=== PATIENT | male | born 1945 | race Caucasian/White ===

== ENCOUNTER 2016-11-03 17:13 | Inpatient (IN) | payer OTHER ==
[~2016-11-03 17:13] MED LIST: MEPERIDINE 25 MG/ML SYR ONE; NA BICARBONATE 50 MEQ/50 ML VIAL ONE
[2016-11-03] MEDS ORDERED: NS 1,000 ML BAG *FOR SEPSIS ORDER SET ONLY IV ONE (17:29)
--- NOTE | 2016-11-03 17:34 | EDPHY ---
HPI/HX/ROS/PE/MDM Narrative: CHIEF COMPLAINT: Rigors following thoracentesis HPI: The patient is a 71 y/o male arriving with his from the Ultrasound Department following a thoracentesis by Dr. Gonzalez complaining of severe rigors. He was admitted 2 months ago for chest pain and viral syndrome. Over the last week he's had increasing shortness of breath and fever. A chest x-ray showed increasing plural effusion, so he was scheduled for a thoracentesis today. Dr. Gonzalez extracted 2L of fluid from the right side and patient almost immediately developed rigors. They administered Demerol while in ultrasound then transferred him to the ED. The patient reports his shortness of breath has improved since the procedure and he denies pain. REVIEW OF SYSTEMS: Aside from elements discussed in the HPI, a comprehensive 10-point review of systems was reviewed and is negative. PMH: GERD Prior medical records reviewed including admission 09/02/16 for chest pain and URI. SOCIAL HISTORY: , at bedside Senior Tax Accountant: Dr. Jah Beth PHYSICAL EXAM: General:Patient is alert, strong rigors, appears uncomfortable. ENT:Eyes are normal to inspection. ENT inspection normal. Neck: Normal inspection. Full range of motion. Respiratory:No respiratory distress. Breath sounds present bilaterally. Cardiovascular: Tachycardic regular rate and rhythm. Strong peripheral pulses. Normal cap refill. Abdomen:The abdomen is nontender to palpation. There are no peritoneal signs. There are normal bowel sounds. Back: Normal to inspection. No tenderness to palpation. Skin: Normal color. No rash. Warm and dry. Extremities: Normal appearance. Full range of motion. Neuro: Oriented x3. Normal motor function. Normal sensory function. ED Course: IV established. Labs drawn including CBC, CHEM, cultures, lactic acid, and PTPTT. EKG ordered. 2500mL IV NS administered for sepsis. 750mg IV Levofloxacin administered. The 12 lead EKG was interpreted by myself. See hard copy and/or "tracemaster" electronic copy for interpretation. 174: Reevaluated patient. His HR has come down from 149 to 115. He no longer has rigors and feels improved. Lactic acid 4.4. 175: Spoke with Dr. Caro, hospitalist. He accepts admission. MDM: This patient presents with tachycardia and rigors following therapeutic and diagnostic thoracentesis as an outpatient. The patient was treated with IV fluids and his symptoms gradually resolved. Initial lab results do not reveal acute abnormality. Given his unusual pneumonia and this episode, he requires admission the hospital for further workup. His initial lactate was Greater than 4 which does qualify him as septic shock per core measure, however he was not hypotensive at any point and I do not think this truly represents a clinical diagnosis of septic shock. - Data Points Laboratory Results: 11/03/16 11/03/16 11/03/16 17:16 17:12 16:36 POC Hgb 16.3 gm/dL gm/dL (14.5-17.3) POC Hct 48 % % (42.8-50.6) VBG Lactic Acid 4.4 mmol/L H mmol/L (0.7-2.1) POC Sodium 144 mEq/L mEq/L (134-144) POC Potassium 4.2 mEq/L mEq/L (3.3-5.0) POC Chloride 103 mEq/L mEq/L (96-108) POC BUN 22 mg/dL mg/dL (7-23) POC Creatinine 1.0 mg/dL mg/dL (0.8-1.5) POC Glucose 134 mg/dL H mg/dL (70-100) Fluid Meso/Macro/Nelson % Fl Pathologist Review Pleural Fluid Source Pleural Color Pleural Appearance Pleural pH Pleural WBC Pleural RBC Pleural Neutrophils Pleural Lymphocytes % Cytology Pending 11/03/16 02 16:36 16:36 POC Hgb POC Hct VBG Lactic Acid POC Sodium POC Potassium POC Chloride POC BUN POC Creatinine POC Glucose Fluid Meso/Macro/Nelson % 15 % % Fl Pathologist Review Pending Pleural Fluid Source PLEURAL Pleural Color YELLOW (STRAW/YELL) Pleural Appearance SL. HAZY H (CLEAR) Pleural pH 7.0 Cancelled (6.8-7.6) Pleural WBC 1327 /mm3 /mm3 Pleural RBC 2400 /MM3 /MM3 Pleural Neutrophils 53 % % Pleural Lymphocytes % 32 % % Cytology Medications Given: Discontinued Medications Sodium Chloride (Ns *For Sepsis Order Set Only*) 2,585 ml 30 ml/kg (2585 ml) IV EDNOW ONE Stop: 11/03/16 17:30 Last Admin: 11/03/16 17:43 Dose: 2,585 ml Point of Care Test Results: 11/03/16 17:12 POC Sodium 144 POC Potassium 4.2 POC Chloride 103 POC BUN 22 POC Creatinine 1.0 POC Glucose 134 H General Initial Vital Signs: Initial Vital Signs Temperature (C) 37.7 C 11/03/16 17:20 Heart Rate 142 H 11/03/16 17:20 Respiratory Rate 24 H 11/03/16 17:20 Blood Pressure 127/87 H 11/03/16 17:20 O2 Sat (%) 97 11/03/16 17:20 O2 Delivery Mode Room Air Allergies/Adverse Reactions: No Known Allergies Allergy (Unverified 09/02/16 09:08) Home Medications: Medication Instructions Recorded Cholecalciferol Vit D3 [Vitamin D3 2,000 units PO DAILY 09/02/16 (*)] Herbals/Supplements -Info Only 1 ea PO DAILY 09/02/16 Omeprazole [Prilosec 20 mg] 20 mg PO DAILY 09/02/16 Vitamin B Complex [B Complex] 1 each PO DAILY 09/02/16 Acetaminophen [Tylenol 325mg (*)] 325 mg PO BID PRN 11/03/16 Tamsulosin HCl [Flomax 0.4 MG (*)] 0.4 mg PO DAILY 11/03/16 Naproxen Sodium [Aleve 220 MG (*)] 440 mg PO BID #28 tab 11/05/16 Sennosides/Docusate Sodium 1 - 2 tab PO BID tab 11/05/16 [Senokot-S] levOFLOXACIN [Levofloxacin] 750 mg PO DAILY #5 tablet 11/05/16 oxyCODONE/APAP 5/325 [Percocet 1 - 2 tab PO Q4HRS PRN #30 tab 11/05/16 5/325 (*)] Departure - Departure Disposition: [facility] Inpatient Acute Clinical Impression: Rigors Condition: Good Report Scribed for: Patrick Galan Report Scribed by: Sandra Vasquez Date of Report: 11/03/16 Time of Report: 17:16 Physician Review and Approval Statement: Portions of this note were transcribed by an ED scribe. I personally performed the history, physical exam, and medical decision making; and confirm the accuracy of the information in the transcribed note.
[2016-11-03 18:22] LABS: LACGHOST ORDER
[2016-11-03 18:36] LABS: % IMMATURE GRANULYOCYTES 0.8 % (0.0-1.1); ABSOLUTE IMMATURE GRANULOCYTES 0.12 10^3/uL (0.00-0.10); ADD DIFF? NO; ADD MORPH? NO; ADD SCAN? NO; ATYPICAL LYMPHOCYTE FLAG 10 (0-99); FRAGMENT RBC FLAG 0 (0-99); HEMOGLOBIN 11.9 g/dL (13.7-17.5); LEFT SHIFT FLG 20 (0-99); LIPEMIA HEMOLYSIS FLAG 80 (0-99); MEAN CELL HEMOGLOBIN CONCENTR. 33.1 g/dL (32.4-36.7); MEAN CELL VOLUME 87.8 fL (81.5-99.8); MEAN PLATELET VOLUME 8.5 fL (8.7-11.7); PLATELET CLUMPS FLAG 20 (0-99); PLATELET COUNT 421 10^3/uL (150-400); RED CELL DISTRIBUTION WIDTH 12.4 % (11.5-15.2)
[2016-11-03 18:54] LABS: INR 1.23 (0.83-1.16); PROTIME(PATIENT) 15.5 SEC (12.0-15.0)
[2016-11-03 18:55] LABS: APTT 29.8 SEC (23.0-38.0)
[2016-11-03 18:57] LABS: ANION GAP 9 mEq/L (8-16); CALCIUM 7.5 mg/dL (8.5-10.4); CARBON DIOXIDE 23 mEq/l (22-31); CHLORIDE 108 mEq/L (97-110); CREATININE 0.8 mg/dL (0.7-1.3); GLOMERULAR FILTRATION RATE > 60; GLUCOSE 151 mg/dL (70-100); POTASSIUM 4.3 mEq/L (3.5-5.2); SODIUM 140 mEq/L (134-144)
[2016-11-03] MEDS ORDERED: ACETAMINOPHEN 325 MG TAB PO PRN (19:22)
[2016-11-03] MEDS ORDERED: OXYCODONE/APAP 5/325 TAB PO PRN (19:22)
[2016-11-03] MEDS ORDERED: ONDANSETRON DISINTEGRATING 4 MG TAB PO PRN (19:22)
[2016-11-03] MEDS ORDERED: ONDANSETRON 4 MG/2 ML VIAL IVP PRN (19:22)
--- NOTE | 2016-11-03 20:17 | GHP ---
[f rep st] HISTORY AND PHYSICAL DATE OF ADMISSION: 11/03/2016 CHIEF COMPLAINT: Status post thoracentesis with rigors. HISTORY OF PRESENT ILLNESS: This is a 71-year-old male who was actually admitted to the hospital in August for pleuritic chest pain. He was discharged on NSAIDs and said his chest pain improved. He then developed, though, some lower back pain on the right. It was thought this may be a kidney s tone sludge. He was taken off his NSAIDs and placed on Tylenol. However, the last couple of weeks he has been having fevers and chills on a daily basis. He had a chest x-ray done , which showed no pleural effusion. He then saw the primary care doctor who then referred him to Pulmonolog y. He had a scheduled thoracentesis done today and immediately afterwards developed rigors. He was given Demerol and he is now feeling better. He states that his lower right-sided back pain is some what better, is only having some pleuritic type sharp pain currently. He has had a significant amou nt of coughing but not a lot of sputum. He has been sleeping a great deal and has had significant f atigue. REVIEW OF SYSTEMS: A 10-point review of systems was obtained and was negative. PAST MEDICAL HISTORY: GERD. MEDICATIONS: Reviewed. SOCIAL HISTORY: No smoking or alcohol. FAMILY HISTORY: Reviewed, not contributory. PHYSICAL EXAM: VITAL SIGNS: Afebrile. Blood pressure is 131/65, heart rate is 118, oxygen saturat ion 94% on room air. GENERAL: The patient is well developed, in no apparent distress. HEENT: Non icteric sclerae. Extraocular movements intact. Moist mucous membranes. NECK: Supple. No thyrome beni. LUNGS: Good effort. Decreased breath sounds in the right base with some slight rhonchi. CA RDIOVASCULAR: Tachycardic but regular. No murmurs, rubs, or gallops. ABDOMEN: Positive bowel ana nds, soft, nontender, nondistended. No hepatosplenomegaly. EXTREMITIES: No clubbing, cyanosis, or edema. SKIN: Without rash. Warm, dry, intact. NEUROLOGIC: Alert and oriented x3. Moving all 4 extremities equally. PSYCH: Normal mood and affect. LABORATORY DATA: White blood cell count 15, hemoglobin 11, platelets are 421. Chemistries normal. Lactate was elevated at 4 but fluid it has come down to 1.1. ASSESSMENT: This is a 71-year-old male presenting with rigors after thoracentesis. PLAN: 1. Large right-sided pleural effusion. About 2 L of fluid were taken out. I suspect this is going to be exudative in nature. I suspect he might have had pneumonia for some time with a result in ef fusion. We will treat as a community-acquired pneumonia with ceftriaxone and azithromycin. In the morning we will get a CT scan of his chest to further elucidate or to further evaluate. 2. Sepsis. The patient's lactate is improved. We will continue the IV fluids overnight. /[id number]/MODL
[2016-11-03] MEDS: NS 1,000 ML IV SCH (21:23)
[2016-11-04] MEDS: NS 1,000 ML IV SCH (03:14)
[2016-11-04 06:01] LABS: % IMMATURE GRANULYOCYTES 0.6 % (0.0-1.1); ABSOLUTE IMMATURE GRANULOCYTES 0.07 10^3/uL (0.00-0.10); ADD DIFF? NO; ADD MORPH? NO; ADD SCAN? NO; ATYPICAL LYMPHOCYTE FLAG 0 (0-99); FRAGMENT RBC FLAG 0 (0-99); HEMATOCRIT 39.2 % (40.0-51.0); LEFT SHIFT FLG 0 (0-99); LIPEMIA HEMOLYSIS FLAG 80 (0-99); MEAN CELL HEMOGLOBIN 29.4 pg (27.9-34.1); MEAN CELL HEMOGLOBIN CONCENTR. 33.2 g/dL (32.4-36.7); MEAN CELL VOLUME 88.7 fL (81.5-99.8); MEAN PLATELET VOLUME 8.7 fL (8.7-11.7); PLATELET CLUMPS FLAG 0 (0-99); PLATELET COUNT 394 10^3/uL (150-400); RED BLOOD CELL COUNT 4.42 10^6/uL (4.40-6.38); RED CELL DISTRIBUTION WIDTH 12.4 % (11.5-15.2)
[2016-11-04 06:10] LABS: ALANINE AMINOTRANSFERASE 49 IU/L (21-72); ALBUMIN 2.3 g/dL (3.5-5.0); ALKALINE PHOSPHATASE 42 IU/L (38-126); ANION GAP 8 mEq/L (8-16); ASPARTATE AMINOTRANSFERASE 26 IU/L (17-59); BILIRUBIN,TOTAL 0.7 mg/dL (0.1-1.4); CALCIUM 8.1 mg/dL (8.5-10.4); CARBON DIOXIDE 23 mEq/l (22-31); CHLORIDE 109 mEq/L (97-110); CREATININE 0.7 mg/dL (0.7-1.3); GLOMERULAR FILTRATION RATE > 60; GLUCOSE 89 mg/dL (70-100); POTASSIUM 4.1 mEq/L (3.5-5.2); SODIUM 140 mEq/L (134-144); TOTAL PROTEIN 4.7 g/dL (6.3-8.2)
--- NOTE | 2016-11-04 09:24 | CPEKG ---
Heart Rate: 132 RR Interval: 455 P-R Interval: 136 QRSD Interval: 72 QT Interval: 268 QTC Interval: 397 P Eagle: 56 QRS Eagle: 99 T Wave Eagle: 71 EKG Severity - OTHERWISE NORMAL ECG - EKG Impression: SINUS TACHYCARDIA EKG Impression: RIGHT AXIS DEVIATION Electronically Signed By: Marcial Rudd 06-Nov-2016 09:43:06
[2016-11-04] MEDS: TAMSULOSIN HCL 0.4 MG CAP PO SCH (10:08)
[2016-11-04] MEDS: AZITHROMYCIN 250 MG TAB PO SCH (10:08)
[2016-11-04] MEDS: PANTOPRAZOLE SODIUM 40 MG TAB PO SCH (10:08)
[2016-11-04] MEDS ORDERED: LACTULOSE 20 GM/30 ML UDCUP PO PRN (10:44)
[2016-11-04] MEDS ORDERED: BISACODYL 10 MG SUPP PR PRN (10:44)
[2016-11-04] MEDS ORDERED: MAGNESIUM HYDROXIDE 30 ML UDCUP PO PRN (10:44)
[2016-11-04] MEDS ORDERED: POLYETHYLENE GLYCOL 3350 17 GM PKT PO PRN (10:44)
[2016-11-04] MEDS: NAPROXEN SODIUM 220 MG TAB PO SCH ×2 (11:11→20:15)
[2016-11-04] MEDS: SENNOSIDES/DOCUSATE SODIUM TAB PO SCH ×2 (11:13→20:14)
--- NOTE | 2016-11-04 14:13 | HOSPPROG ---
Hospitalist Progress Note Assessment/Plan: Assessment: 71-year-old male presents with severe sepsis secondary to community -acquired pneumonia complicated by parapneumonic effusion Plan: 1. Severe sepsis. Evidenced by sepsis-2 criteria consisting of tachycardia ( heart rate of 142) plus tachypnea (respiratory rate of 24) plus leukocytosis ( white blood cell count 15,100), clear source of infection notably pneumonia, evidence of end-organ failure notably lactic acidosis, resulting in autonomic dysregulation in the setting of infection -required empiric antibiotics and IV fluid boluses -continue to monitor CBC -continues to have tachycardia and leukocytosis, clinically on resolved 2. Metabolic acidosis. Acute, secondary to lactic acid, peak level 4.4, secondary to combination of hypovolemia and severe sepsis 3. Community-acquired pneumonia. Evidenced by right-sided consolidation on chest CT plus pulmonary symptoms including chest pain and pleuritic discomfort -day 2 ceftriaxone/azithromycin, will complete 7 day course given his significant effusion -initiate naproxen scheduled for chest discomfort, oxycodone immediate release p.r.n. 4. Parapneumonic effusion. Exudative on pleural fluid study, 2 L removed, g stain demonstrates white blood cells but currently no growth to date -given patient's risk of recurrent effusion and worsening pulmonary symptoms, will monitor as an inpatient and repeat two view chest x-ray in a.m. to ensure rapid recurrence has not occurred -nonsteroidal anti-inflammatory medications Diet. Regular Prophylaxis. High risk patient, Lovenox 40 Code. Full Disposition. Anticipated discharge is 11/05/2016, pending clinical resolution of conditions outlined above. Subjective: Counseled patient and family regarding the clinical diagnosis, treatment course, daily plan Objective: Vital Signs Temp Pulse Resp BP Pulse Ox 36.7 C 90 14 140/67 H 94 11/04/16 12:00 11/04/16 12:00 11/04/16 12:00 11/04/16 12:00 11/04/16 12:00 Laboratory Results 11/04/16 04:34 11/04/16 04:34 11/03/16 11/04/16 11/05/16 05:59 05:59 05:59 Intake Total 3500 Balance 3500 PT 15.5 SEC (12.0-15.0) H 11/03/16 18:22 INR 1.23 (0.83-1.16) H 11/03/16 18:22 - Time Spent With Patient Time Spent with Patient: greater than 35 minutes Time Spent with Patient: Greater than 35 minutes spent on this patients care, greater than 50% of time spent counseling, educating, and coordinating care regarding the above mentioned plan. - Physical Exam Constitutional: no apparent distress, uncomfortable Cardiovascular: regular rate and rhythym, no murmur, rub, or gallop Respiratory: reduced air movement (Right base and right mid posterior segment), No expiratory wheeze, No inspiratory crackles, No bronchial breath sounds, No respiratory distress Gastrointestinal: normoactive bowel sounds, soft, non-tender abdomen, no palpable masses Neurologic: AAOx3, sensation intact bilaterally, No weakness Psychiatric: interacting appropriately, not anxious, not encephalopathic, thought process linear ICD10 Worksheet Patient Problems: Problems Problem Status Onset Pericarditis Acute Chest pain Acute Rigors Acute
[2016-11-04] MEDS: ENOXAPARIN 40 MG/0.4 ML SYR SC SCH (15:56)
[2016-11-04 16:28] VITALS: TEMP 98.1
[2016-11-04] MEDS ORDERED: NS 1,000 ML IV ONE (16:34)
[2016-11-04 18:54] VITALS: RESP 16
[2016-11-05 05:24] LABS: % IMMATURE GRANULYOCYTES 0.5 % (0.0-1.1); ABSOLUTE IMMATURE GRANULOCYTES 0.04 10^3/uL (0.00-0.10); ADD DIFF? NO; ADD MORPH? NO; ADD SCAN? NO; ATYPICAL LYMPHOCYTE FLAG 10 (0-99); FRAGMENT RBC FLAG 0 (0-99); HEMATOCRIT 38.1 % (40.0-51.0); HEMOGLOBIN 12.6 g/dL (13.7-17.5); LEFT SHIFT FLG 0 (0-99); LIPEMIA HEMOLYSIS FLAG 80 (0-99); MEAN CELL HEMOGLOBIN 29.2 pg (27.9-34.1); MEAN CELL HEMOGLOBIN CONCENTR. 33.1 g/dL (32.4-36.7); MEAN CELL VOLUME 88.2 fL (81.5-99.8); MEAN PLATELET VOLUME 8.5 fL (8.7-11.7); PLATELET CLUMPS FLAG 10 (0-99); PLATELET COUNT 348 10^3/uL (150-400); RED BLOOD CELL COUNT 4.32 10^6/uL (4.40-6.38); RED CELL DISTRIBUTION WIDTH 12.4 % (11.5-15.2)
[2016-11-05 05:36] LABS: ALANINE AMINOTRANSFERASE 41 IU/L (21-72); ALBUMIN 2.2 g/dL (3.5-5.0); ALKALINE PHOSPHATASE 39 IU/L (38-126); ANION GAP 9 mEq/L (8-16); ASPARTATE AMINOTRANSFERASE 21 IU/L (17-59); BILIRUBIN,TOTAL 0.7 mg/dL (0.1-1.4); CALCIUM 8.3 mg/dL (8.5-10.4); CARBON DIOXIDE 21 mEq/l (22-31); CHLORIDE 110 mEq/L (97-110); CREATININE 0.7 mg/dL (0.7-1.3); GLOMERULAR FILTRATION RATE > 60; GLUCOSE 96 mg/dL (70-100); SODIUM 140 mEq/L (134-144); TOTAL PROTEIN 4.7 g/dL (6.3-8.2)
[2016-11-05 08:16] VITALS: BP 117/65; PULSE 91; O2SAT 92
[2016-11-05] MEDS: AZITHROMYCIN 250 MG TAB PO SCH (08:55)
[2016-11-05] MEDS: PANTOPRAZOLE SODIUM 40 MG TAB PO SCH (08:55)
[2016-11-05] MEDS: SENNOSIDES/DOCUSATE SODIUM TAB PO SCH (08:55)
[2016-11-05] MEDS: NAPROXEN SODIUM 220 MG TAB PO SCH (08:55)
[2016-11-05] MEDS: ENOXAPARIN 40 MG/0.4 ML SYR SC SCH (08:56)
[2016-11-05] MEDS: TAMSULOSIN HCL 0.4 MG CAP PO SCH (08:56)
--- NOTE | 2016-11-05 11:37 | PDDCSUM ---
Discharge Summary Discharge Summary: DISCHARGE SUMMARY FOLLOW-UP ITEMS: 1. Repeat chest x-ray in 4-6 weeks or sooner if symptoms warrant 2. Cytology and Gram stain pending at time of discharge DATE OF ADMISSION: 11/03/2016 DATE OF DISCHARGE: 11/05/2016 DISCHARGE DIAGNOSES: 1. Severe sepsis 2. Metabolic acidosis 3. Community-acquired pneumonia 4. Parapneumonic effusion CONSULTATIONS: None PROCEDURES / IMAGING: Right-sided thoracentesis, diagnostic and therapeutic, 2 L of fluid removed CHIEF COMPLAINT: Acute shortness of breath and rigors SUBJECTIVE: Patient is feeling well at time of discharge, he is ambulating safely on room air PHYSICAL EXAM ON DISCHARGE: Satting well on room air, systolic blood pressure is 110, heart rate 90, afebrile overnight, reduced air movement in the right posterior mid and lower segment with good air movement superior to that on the right, good air movement on the left LABS ON DISCHARGE: White blood cell count 7800, hemoglobin 12.6, platelets 129812, creatinine 0.7, potassium 4, liver panel unremarkable, g stain no organisms HOSPITAL COURSE BY PROBLEM: 1. Severe sepsis evidenced by sepsis-2 criteria consisting of tachycardia ( heart rate of 142) plus tachypnea (respiratory rate of 24) plus leukocytosis ( white blood cell count 15,100) plus clear source of infection notably pneumonia , with evidence of end-organ failure notably lactic acidosis, resulting in autonomic dysregulation in the setting of infection. The patient received empiric IV fluids and empiric IV antibiotics. His leukocytosis had resolved at time of discharge. Was intermittently tachycardic in the setting of exertion, but his resting heart rate was less than 100 at time of discharge. 2. Metabolic acidosis. Acute, secondary to lactic acid, peak level 4.4, secondary to a combination of hypovolemia and severe sepsis. 3. Community-acquired pneumonia. Evidenced by right-sided consolidation on chest CT plus pulmonary symptoms including chest pain and pleuritic discomfort. Patient received 3 days of IV antibiotic therapy any will complete total of at least 7 days of antibiotics with oral levofloxacin. He was also initiated on scheduled naproxen to alleviate his chest discomfort and inflammation. He required as needed Percocet for breakthrough pain control. 4. Parapneumonic effusion. Exudate of on pleural fluid study with 2 L of fluid removed and no organisms on Gram stain. The patient had a chest x-ray in August of 2016 which demonstrated no evidence of masses or malignancy and no evidence of chronic effusion. He had follow-up chest x-ray on 11/05 which demonstrated no reaccumulation of fluid and stable right basilar effusion. The patient may reabsorbed this fluid and may not require further thoracentesis but he should be evaluated closely in the outpatient setting by Dr. Beth or his primary care provider. I have advised the patient's family that if he is experiencing worsening of his symptoms, he should be evaluated and consideration for repeat thoracentesis may be necessary therapeutically. DISCHARGE MEDICATIONS: Please see official discharge medication reconciliation sheet in chart , levofloxacin 750 mg daily, Percocet as needed, naproxen scheduled twice daily. DISCHARGE INSTRUCTIONS: The patient should follow up with either Dr. Beth or Dr. Messer this week for reassessment of his pulmonary symptoms. TIME SPENT: Greater than 30 minutes were spent on direct patient care, as well as discharge planning and preparation.
== END 2016-11-05 12:23 | disposition home or self-care (01) | DRG 871 ==
LOC: EDSTATUS 17:13 → OBSVTOIN 19:22 → F3E 20:55
PROVIDERS: ADMIT Internal Medicine; ATTEND Internal Medicine
PROC: 0W993ZX Drainage of Right Pleural Cavity, Percutaneous Approach, Diagnostic (ICD-10-PCS; principal; 2016-11-03)
DX: A41.9 Sepsis, unspecified organism (principal); R65.20 Severe sepsis without septic shock; J18.9 Pneumonia, unspecified organism; J90 Pleural effusion, not elsewhere classified; E87.2 Acidosis
CPT/HCPCS: 82947-QW; 96365; J0696; J1650; J1956

== ENCOUNTER → 2016-11-13 | Outpatient (CLI) | payer OTHER ==
[~2016-11-13] MED LIST changes: +LIDOCAINE 1% 30 ML SDV ONE; -MEPERIDINE 25 MG/ML SYR ONE
== END ==
LOC: FIMAGING 13:01
PROVIDERS: ATTEND Internal Medicine Pulmonary Disease
PROC: 0W993ZZ Drainage of Right Pleural Cavity, Percutaneous Approach (ICD-10-PCS; principal; 2016-11-13)
DX: J90 Pleural effusion, not elsewhere classified (principal); J81.0 Acute pulmonary edema

== ENCOUNTER → 2016-11-30 | Outpatient (CLI) | payer OTHER | LOC: FIMAGING 09:38 → EDSTATUS 09:39 | PROVIDERS: ATTEND Internal Medicine Pulmonary Disease | DX: J90 Pleural effusion, not elsewhere classified (principal) ==

== ENCOUNTER → 2017-01-10 | Outpatient (CLI) | payer OTHER | LOC: FIMAGING 08:49 | PROVIDERS: ATTEND Internal Medicine Pulmonary Disease | DX: J90 Pleural effusion, not elsewhere classified (principal) ==

== ENCOUNTER → 2017-03-06 | Outpatient (CLI) | payer OTHER | LOC: FIMAGING 10:57 → EDSTATUS 11:27 | PROVIDERS: ATTEND Internal Medicine Pulmonary Disease | DX: J90 Pleural effusion, not elsewhere classified (principal) ==

== ENCOUNTER → 2017-06-12 | Outpatient (CLI) | payer OTHER | LOC: FLAB 08:54 | PROVIDERS: ATTEND Internal Medicine Pulmonary Disease | DX: J90 Pleural effusion, not elsewhere classified (principal) ==

== ENCOUNTER → 2019-01-23 | Outpatient (CLI) | payer OTHER | LOC: FIMAGING 14:22 | PROVIDERS: ATTEND Internal Medicine | DX: R06.00 Dyspnea, unspecified (principal); E78.5 Hyperlipidemia, unspecified; K21.9 Gastro-esophageal reflux disease without esophagitis; N40.0 Benign prostatic hyperplasia without lower urinary tract symptoms; M89.9 Disorder of bone, unspecified; M94.9 Disorder of cartilage, unspecified ==